=== PATIENT | female | born 1990 | race Caucasian/White ===

== ENCOUNTER 2017-06-22 00:37 | Emergency (ER) | payer SELFPAY ==
[~2017-06-22] VITALS: Ht 167.6 cm; Wt 67.2 kg
[2017-06-22 02:00] VITALS: BP 130/87
[2017-06-22] MEDS ORDERED: NAPROSYN500 MG PO ×2 (02:33→02:41)
== END 2017-06-22 02:55 | disposition home or self-care (01) | DRG 563 ==
LOC: ED 00:37
DX: S39.012A Strain of muscle, fascia and tendon of lower back, initial encounter (principal); X50.0XXA Overexertion from strenuous movement or load, initial encounter; Y92.9 Unspecified place or not applicable